=== PATIENT | female | born 1995 | race Caucasian/White ===

== ENCOUNTER 2016-10-22 10:39 | Emergency (ER) | payer OTHER | END 2016-10-22 14:30 | disposition home or self-care (01) | LOC: D.ER 10:39 | DX: K08.89 Other specified disorders of teeth and supporting structures (principal); K04.7 Periapical abscess without sinus ==

== ENCOUNTER 2016-12-14 17:51 | Emergency (ER) | payer MEDICAID | END 2016-12-14 19:05 | disposition home or self-care (01) | LOC: D.ER 17:51 | DX: S02.5XXA Fracture of tooth (traumatic), initial encounter for closed fracture (principal); X58.XXXA Exposure to other specified factors, initial encounter; Y93.89 Activity, other specified; Y92.89 Other specified places as the place of occurrence of the external cause; F17.200 Nicotine dependence, unspecified, uncomplicated ==